=== PATIENT | female | born 1965 | race Caucasian/White ===

== ENCOUNTER 2025-01-13 23:40 | Emergency (ER) | payer BC, SELFPAY ==
[2025-01-13 23:50] VITALS: BP 167/104
[2025-01-13 23:52] VITALS: BP 198/121; PULSE 96; RESP 18; TEMP 36.2; O2SAT 100; BMI 23.5
[2025-01-13 23:55] VITALS: O2SAT 98
[2025-01-14] VITALS (15 sets, daily range): BP systolic 133–158; BP diastolic 83–96; PULSE 79–87; RESP 7–38; O2SAT 96–99
--- NOTE | 2025-01-14 00:01 | CRLHL7_ITS ---
For Patients: As a result of the Cures Act, medical imaging exams and procedure reports are released immediately into your electronic medical record. You may view this report before your referring provider. If you have questions, please contact your health care provider. INDICATION: Ongoing chest pain for 6 months TECHNIQUE: Chest radiograph 2 views COMPARISON: None FINDINGS: Mediastinum: The mediastinum is normal in appearance. The heart silhouette is normal in size and morphology. Lung: Both lungs are unremarkable in appearance. No sign of pleural effusion seen. No pneumothorax is identified. Bone and Soft tissue: Unremarkable for age. Previous cholecystectomy noted with no significant intra- or extrahepatic biliary ductal dilatation seen. IMPRESSION: 1. No acute cardiopulmonary disease is seen. Dictated by: Holden Bailey MD @ 01/14/2025 00:30:09 (Electronically Signed)
--- NOTE | 2025-01-14 00:04 | ED.CHESTPAIN ---
HPI - Chest Pain General Chief Complaint: Chest Pain Stated Complaint: chest pain Time Seen by Provider: 01/13/25 23:54 Source: patient, RN notes reviewed and old records reviewed Mode of arrival: ambulatory Limitations: no limitations History of Present Illness HPI narrative: Patient is a very nice 59-year-old female who presents here for evaluation of chest pain over the left side of her chest, she has had this for the past 2 hours this coupled with her heart beating stronger than it normally does. She has had reminds me that she has had the chest pain on off for at least 4-6 months. She has talked to multiple providers about this, she is tentatively have a stress test scheduled with her primary care physician although she is not on about getting this appointment done. She describes the pain over left side of her chest with a little bit of radiation to her left shoulder, not associated with nausea, vomiting, the pain is sudden, and last seconds, although there is time she says it feels like can last for maybe a minute, not always associated infected almost never is associated with exercise or walking, and she is able to exercise without problems. No previous history of coronary disease but her sister when she was 53 did have coronary artery disease. She has a history of hypertension, ex-smoker in the remote past, no history of diabetes she does not think her cholesterol is elevated. And no use of any drugs. Does have a history of a mildly dilated aorta at 3.9 cm. Saw last saw cardiology in 2021. Also has a history of asthma, followed by the [facility]. She is allergic to aspirin. Unsure of the allergy. But as able to take ibuprofen complaint: chest pain Pertinent past history: asthma Onset (ago): hour(s) Timing of current episode: now resolved Prior episodes: Yes Onset: during rest Pain location: left chest Pain radiation: left shoulder Severity: moderate Quality: tightness Relieving factors: nothing Exacerbating factors: nothing Treatment prior to arrival: none Risk Factors Coronary artery disease risk factors: hypertension Thoracic aortic dissection risk factors: none Related Data On Oral Contraceptives: No Home Medications ?Medication ?Instructions ?Recorded ?Confirmed albuterol sulfate 90 mcg/actuation 2 inh inhalation Q4-6H PRN 01/14/25 01/14/25 breath activated powder inhaler amlodipine 10 mg tablet 10 mg PO DAILY 01/14/25 01/14/25 estradiol 1 mg tablet (Estrace) 1 mg PO DAILY 01/14/25 01/14/25 loratadine 10 mg chewable tablet 10 mg PO DAILY 01/14/25 01/14/25 losartan 25 mg tablet (Cozaar) 25 mg PO DAILY 01/14/25 01/14/25 montelukast 10 mg tablet 10 mg PO DAILY 01/14/25 01/14/25 sertraline 25 mg tablet 25 mg PO DAILY 01/14/25 01/14/25 Allergies Allergy/AdvReac Type Severity Reaction Status Date / Time aspirin Allergy Mild Hives Verified 01/13/25 23:59 Penicillins Allergy Mild Hives Verified 01/13/25 23:59 Review of Systems Status of ROS Reports: 10 or more systems reviewed and unremarkable except as noted in History and below [facility] Medical History Palpitations ?R00.2 - Palpitations (ICD-10) Syncope ?R55 - Syncope and collapse (ICD-10) Hypertension ?I10 - Essential (primary) hypertension (ICD-10) Mitral valve prolapse ?I34.1 - Nonrheumatic mitral (valve) prolapse (ICD-10) Asthma ?J45.909 - Unspecified asthma, uncomplicated (ICD-10) Surgical History Hx of cholecystectomy ?Z90.49 - Acquired absence of other specified parts of digestive tract (ICD-10) Social History service: No Exam Narrative Exam Narrative: Patient is peaking normally, no problem with slurring words, oriented x3. Head eyes ears nose and throat exam show equal pupils, no scleral icterus, extraocular muscles are normal, no facial droop, speech is normal, trachea normal and midline. Thyroid normal midline palpable not enlarged. Chest shows symmetrical rise bilaterally, normal auscultation with no wheezes, no increased work of breathing, no overt bruising or lesions seen, no tenderness is noted on auscultation. Heart sounds normal with no S3-S4 no murmurs clicks or gallops. Abdomen shows no obvious masses or hepatosplenomegaly, no organomegaly, bowel sounds are normal in all quadrants. No tenderness is noted also in all quadrants. Upper and lower extremities show normal power, normal range of motion, pulses are normal, sensations normal, fine motor movements are normal, pelvis is stable to rocking. Cervical spine shows normal range of motion, and palpably not tender. Thoracic spine shows normal range of motion, and palpably not tender, lumbar spine shows no tenderness to palpation percussion and is otherwise normal range of motion. Skin shows no rashes, petechiae or eccymosis. Const Vital Signs, click to edit/add: Vital Signs - 24 hr 01/13/25 23:50 01/13/25 23:52 01/14/25 00:14 Temperature 97.1 F L Pulse Rate 83 Pulse Rate [Right Pulse Oximeter] 96 Respiratory Rate 18 14 Blood Pressure Blood Pressure [Left Upper Arm] 167/104 H 198/121 H Pulse Oximetry 100 97 Oxygen Delivery Method Room Air 01/14/25 00:15 01/14/25 00:16 01/14/25 00:30 Temperature Pulse Rate 86 87 87 Pulse Rate [Right Pulse Oximeter] Respiratory Rate 16 16 17 Blood Pressure 158/96 H Blood Pressure [Left Upper Arm] Pulse Oximetry 98 98 97 Oxygen Delivery Method 01/14/25 00:31 01/14/25 00:45 01/14/25 00:46 Temperature Pulse Rate 85 86 83 Pulse Rate [Right Pulse Oximeter] Respiratory Rate 17 12 7 L Blood Pressure 141/87 H 140/93 H Blood Pressure [Left Upper Arm] Pulse Oximetry 97 98 97 Oxygen Delivery Method 01/14/25 01:00 Temperature Pulse Rate 83 Pulse Rate [Right Pulse Oximeter] Respiratory Rate 19 Blood Pressure Blood Pressure [Left Upper Arm] Pulse Oximetry 99 Oxygen Delivery Method Documenting provider has reviewed patient's vital signs: yes Course Course ED Course: I reviewed the lab tests with her, her troponin D-dimer in the remainder lab tests were all normal, we will repeat her point of care troponin, this is negative then I think we can safely discharge her home, her heart score puts her in a low risk category, I would recommend that she do a follow-up stress echo, for her palpitations I will hold off any medication as the interaction may make her worsening asthma. We went over signs and symptoms of worsening when she should re-presented she was comfortable with this. Vital Signs Vital signs: Initial Vital Signs Blood Pressure 167/104 H 01/13/25 23:50 Blood Pressure Mean 125 H 01/13/25 23:50 Blood Pressure Position Semi-Fowlers 01/13/25 23:50 Vital Signs Blood Pressure 167/104 H 01/13/25 23:50 Temperature 97.1 F L 01/13/25 23:52 Pulse Rate 83 01/14/25 01:00 Respiratory Rate 19 01/14/25 01:00 Blood Pressure 140/93 H 01/14/25 00:46 Pulse Oximetry 99 01/14/25 01:00 Oxygen Delivery Method Room Air 01/13/25 23:52 Medications Administered Medications: Discontinued Medications Generic Name Dose Route Start Last Admin Trade Name Freq PRN Reason Stop Dose Admin Sodium Chloride 1,000 mls @ 1,000 mls/hr 01/14/25 00:15 01/14/25 00:35 0.9 % Sodium Chloride 1000 Ml IV 01/14/25 01:14 1,000 mls/hr .Q1H CLINT Administration MDM - Chest Pain MDM Narrative Medical decision making narrative: During the evaluation of this patient I considered multiple differential diagnosis is. The life-threatening differential diagnosis include coronary disease/CT, pulmonary embolism, pneumothorax, pneumonia, and aortic dissection. Other differential diagnosis included but were not limited to pericarditis, myocarditis, chest wall pain, GERD, esophageal rupture, rib fracture contusion, pleurisy, as well as other etiologies. Differential Diagnosis Differential diagnosis: Likely fracture of rib, pneumothorax, stable angina, unstable angina pectoris, atypical chest pain, st elevation myocardial infarction, costochondritis, chest pain and biliary colic Medical Records Data Attestation: I reviewed the patient's medical records. Lab Data Attestation: I reviewed the patient's lab results. Labs: Lab Results 01/14/25 Range/Units 00:00 WBC 9.59 (4.50-11.00) K/uL RBC 4.31 (4.00-5.20) m/uL Hgb 12.8 (12.0-16.0) gm/dL Hct 38.1 (33.0-51.0) % MCV 88 (80-100) fL MCH 30 (26-34) pg MCHC 34 (32-36) gm/dL RDW Coeff of Meri 12.9 (11.5-15.5) % Plt Count 250 (140-440) K/uL Neut % (Auto) 53.7 (42.0-72.0) % Lymph % (Auto) 32.7 (20-44) % Grand % (Auto) 8.1 (0.0-11.0) % Eos % (Auto) 4.4 (0.0-7.0) % Baso % (Auto) 0.8 (0.0-3.0) % Neut # (Auto) 5.14 (1.7-7.0) K/uL Lymph # (Auto) 3.14 H (0.90-2.90) K/uL Grand # (Auto) 0.80 (0.00-0.90) K/UL Eos # (Auto) 0.42 (0.00-0.50) K/uL Baso # (Auto) 0.08 (0.00-0.30) K/uL Abs Immat Gran (auto) 0.03 (0.00-0.30) K/uL Imm/Tot Granulo (auto) 0.3 % D-Dimer Quant (PE/DVT) 0.10 (0.00-0.50) ug/ml Sodium 143 (135-149) mmol/L Potassium 3.8 (3.6-5.1) mmol/L Chloride 109 (96-114) mmol/L Carbon Dioxide 24 (20-32) mmol/L Anion Gap 10 (7-15) mEq/L BUN 15 (7-30) mg/dL Creatinine 0.7 (0.5-1.5) mg/dL Estimated Creat Clear 71.58 Estimated GFR 100 ml/min Glucose 107 (60-115) mg/dL Calcium 8.9 (8.4-10.6) mg/dL Magnesium 2.2 (1.5-2.6) mg/dL Total Bilirubin 0.6 (0.1-1.5) mg/dL Direct Bilirubin 0.2 (0.0-0.5) mg/dL AST 21 (12-35) U/L ALT 15 (4-35) U/L Alkaline Phosphatase 61 (40-150) U/L NT-Pro-B Natriuret Pep 27 pg/mL Total Protein 6.7 (6.0-8.3) g/dL Albumin 4.2 (3.3-5.0) g/dL TSH 3.610 (0.270-4.20) uIU/mL POC Troponin I 0.00 L (0.01-0.04) ng/ml Imaging Data Chest x-ray: Attestation: I have reviewed the pertinent imaging results. My impression: No acute findings Radiologist's impression: [address] [address] Diagnostic Imaging Report Patient: Leah Parkinson MR#: [id number] : 1965 Acct:[id number] Loc: ED Service Date: 01/14/[address]: Ordering Physician: Franki Hernandez M.D. Date of Service: 01/14/25 Procedure(s): XR chest 2V Accession Number(s): [id number] cc: Provider,Not a Local; Franki Hernandez M.D.~ For Patients: As a result of the Cures Act, medical imaging exams and procedure reports are released immediately into your electronic medical record. You may view this report before your referring provider. If you have questions, please contact your health care provider. INDICATION: Ongoing chest pain for 6 months TECHNIQUE: Chest radiograph 2 views COMPARISON: None FINDINGS: Mediastinum: The mediastinum is normal in appearance. The heart silhouette is normal in size and morphology. Lung: Both lungs are unremarkable in appearance. No sign of pleural effusion seen. No pneumothorax is identified. Bone and Soft tissue: Unremarkable for age. Previous cholecystectomy noted with no significant intra- or extrahepatic biliary ductal dilatation seen. IMPRESSION: 1. No acute cardiopulmonary disease is seen. Dictated by: Holden Bailey MD @ 01/14/2025 00:30:09 (Electronically Signed) ECG Data Attestation: I personally reviewed and interpreted this ECG as follows: ECG interpretation date: 01/14/25 Prior ECG tracings: not available for review Interpretation: EKG shows normal sinus rhythm, with incomplete right bundle-branch block, QRS 98 milliseconds QT is 380, QTC is 469. Inferiorly there is maybe some slight ST wave flattening noted in leads 3. Poor R-wave progression is noted across the precordial leads. Abnormal EKG with nonspecific findings. Discharge Plan Discharge Clinical Impression: Chest pain, Heart palpitations Patient Disposition: Home, Self-Care Condition: Stable Instructions: Chest Pain (DC), Heart Palpitations (DC) Additional Instructions: Home, rest, all your testing here was negative, there is no indication of anything significantly wrong. I do recommend that you follow-up with primary care. I have given the name of an excellent primary care physician, where he can consider seeing. She is rate ex door in the clinic, return here if increasing chest pain shortness of breath exertional discomfort or other issues. But again reassuring findings were found today on examination and testing Activity Level: Light activity Discharge Diet: Regular Prescriptions: No Action montelukast 10 mg tablet 10 mg PO DAILY losartan [Cozaar] 25 mg tablet 25 mg PO DAILY sertraline 25 mg tablet 25 mg PO DAILY amlodipine 10 mg tablet 10 mg PO DAILY albuterol sulfate 90 mcg/actuation aerosol powdr breath activated 2 inh inhalation Q4-6H PRN loratadine 10 mg tablet,chewable 10 mg PO DAILY estradiol [Estrace] 1 mg tablet 1 mg PO DAILY Rx Instructions: off 1 week; repeat cycle Follow Up/Referrals: Luz Elena Cochran MD [Staff Physician] - Provider,Not a Local [Primary Care Provider] - Stand Alone Forms: [employer] Info Instructions
[2025-01-14 00:13] LABS: Basophils Absolute Auto 0.08 K/uL (0.00-0.30); Basophils Percent Auto 0.8 % (0.0-3.0); Eosinophils Absolute Auto 0.42 K/uL (0.00-0.50); Eosinophils Percent Auto 4.4 % (0.0-7.0); Hematocrit 38.1 % (33.0-51.0); Hemoglobin* 12.8 gm/dL (12.0-16.0); Immature Granulocytes Abs Auto 0.03 K/uL (0.00-0.30); Immature Granulocytes Pct Auto 0.3 %; Lymphocytes Absolute Auto 3.14 K/uL (0.90-2.90); Lymphocytes Percent Auto 32.7 % (20-44); Mean Corpuscular HGB Conc 34 gm/dL (32-36); Mean Corpuscular Hemoglobin 30 pg (26-34); Mean Corpuscular Volume 88 fL (80-100); Monocytes Percent Auto 8.1 % (0.0-11.0); Neutrophils Absolute Auto 5.14 K/uL (1.7-7.0); Neutrophils Percent Auto 53.7 % (42.0-72.0); Platelet Count* 250 K/uL (140-440); RDW Coefficient of Variation % 12.9 % (11.5-15.5); Red Blood Count 4.31 m/uL (4.00-5.20); White Blood Count* 9.59 K/uL (4.50-11.00)
[2025-01-14 00:14] LABS: Slide Review Reflex No
--- OUTSIDE RECORDS SUMMARY | 2025-01-14 00:20 | XMS_ITS | Clinical Summary ---
Author Organization [facility] Address [address] [place] [id number] Care Team Providers Care Controlled Area Checker Name Role Phone Iva Wilcox CARE ASST Primary Care Provider [phone] Allergies Active Allergy Reactions Criticality Noted Date Comments Aspirin Hives 08/01/2007 Penicillins Hives 08/01/2007 Medications albuterol HFA 90 mcg/actuation inhalerIndicatio ns:History of asthma Inhale 2 Puffs by mouth 4 times daily if needed. 1 Inhaler 8 Active amLODIPine (NORVASC) 10 mg tablet Take 1 Tablet (10 mg) by mouth once daily. 2 Active montelukast (SINGULAIR) 10 mg tablet Take 1 Tablet (10 mg) by mouth once daily. 0 2 Active loratadine (Claritin) 10 mg chew Chew 10 mg by mouth once daily. 0 2 Active sertraline (Zoloft) 25 mg tablet Take 1 Tablet (25 mg) by mouth once daily. 0 2 Active estradioL (ESTRACE) 1 mg tablet Take 1 Tablet (1 mg) by mouth once daily. 0 2 Active polyethylene glycol-electroly te (GOLYTELY) 236-22.74-6.74 -5.86 gram suspensionIndica tions:Encounter for screening colonoscopy Drink 2 liters (half the bottle) the day before colonoscopy and 2 liters (remaining prep) 6 hours prior to colonoscopy appointment. 4000 mL 4 Active losartan (COZAAR) 25 mg tablet Take 25 mg by mouth once daily. Active Active Problems Problem Noted Date Diagnosed Date Colon polyp 06/21/2024 Overview (06/21/2024): Colonoscopy 06/2024 TA, repeat in 5 years Family history of colon cancer 06/21/2024 Overview (06/21/2024): Colonoscopy 06/2024 TA, repeat in 5 years Syncope 02/09/2022 HTN (hypertension) 02/09/2022 Palpitations 02/09/2022 Asthma 12/15/2010 Family History Medical History Relation Name Comments Hypertension Brother Hypertension Father Arrhythmia Mother Hypertension Mother Heart attack Sister Hypertension Sister Relation Name Status Comments Brother Father Mother Sister Social History Tobacco Use Types Packs/Day Years Used Date Smoking Tobacco: Never Alcohol Use Standard Drinks/Week Comments Yes 0 (1 standard drink = 0.6 oz pur e alcohol) 1-2 monthly Social Connections Answer Date Recorded Do you often feel lonely or isolated from those around you? 4 06/14/2024 Financial Resource Strain Answer Date R ecorded Difficulty of Paying Living Expenses 3 06/15/2024 Difficulty of Paying Living Expenses Not on file 06/15/2024 Food Insecurity Answer Date Recorded Do you worry your food will run out before you are able to buy more? 1 06/14/2024 Transportation Needs Answer Date Record ed Does lack of transportation keep you from medica l appointments? 1 06/14/2024 Does lack of transportation keep you from work, meetings or getting things that you need? 1 06/14/2024 Housing Stability Answer Date Recorded What is your housing situation today? 1 06/14/2024 Utilities Answer Date Recorded Do you have trouble paying f or utilities (for example, heat, electricity, water, phone)? 1 06/14/2024 Comments No Sex and Gender Information Value Date Recorded Sex Assigned at Not on file Legal Sex Female 5:47 AM ORTHOTIST PROSTHETIST Gender Identity Not on file Sexual Orientation Not on file Obstetrics History Last Filed Vital Signs Vital Sign Reading Time Taken Comments Blood Pressure 135/88 06/15/2024 9:43 AM CDT Pulse 95 06/15/2024 9:43 AM CDT Temperature 37.2 C (98.9 F) 09/18/2020 10:42 PM ORTHOTIST PROSTHETIST Respiratory Rate 18 09/18/2020 10:42 PM ORTHOTIST PROSTHETIST Oxygen Saturation 100% 06/15/2024 9:43 AM CDT Inhaled Oxygen Concentration - - Weight 65.4 kg (144 lb 3.2 oz) 06/15/2024 9:43 A M CDT Height 161.6 cm (5' 3.62) 06/15/2024 9:43 AM CD T Body Mass Index 25.05 06/15/2024 9:43 AM CDT Plan of Treatment Health Maintenance Due Date Last Done Comments Tdap 01/17/1976 Depression screening for age 12+ 1977 HIV for age 15-65 01/17/1980 Hepatitis C screening for age 18-79 1983 Tetanus booster 1985 Pap test for age 21-65 1986 Lipids for age 45-75 2010 Mammogram for age 45-75 2010 Pneumococcal series for age 50+ (1 of 1 - PCV) 2015 Zoster (shingles) series for age 50+ (1 of 2) 2015 COVID-19 vaccine series ( - season) 2024 Influenza Vaccine (Season Ended) 2025 BMI (ht and wt on same day) for age 18+ 06/15/2025 1 , 02/09/2022 Colonoscopy through age 75 06/18/2029 06/18/2024 Procedures Procedure Name Priority Date/Time Associated Diagnosis Comments SCAN-COLONOSCOPY 06/18/2024 12:0 0 AM CDT from Last 3 Months or Most Recently Relevant to Health Maintenance Results * SCAN-COLONOSCOPY (06/18/2024 12:00 AM CDT) us Scanner OTHER Final Result from Last 3 Months or Most Recently Relevant to Health Maintenance Insurance [facility] Care Teams Controlled Area Checker Relationship Specialty Start Date End Date Iva Wilcox NP YOGESH BURTON [phone] PCP - General Nurse Practitioner 01/27/22
--- OUTSIDE RECORDS SUMMARY | 2025-01-14 00:21 | XMS_ITS | Clinical Summary ---
Author Organization [facility] Address [address] [place] [address] Care Team Providers Care Cosmetic Sales Assistant Name Role Phone Unavailable Primary Care Provider Unavailabl e Source Comments PLEASE NOTE, if this patient is a minor, it may be UNLAWFUL to discuss sensitive information that is contained in these records (such as FAMILY PLANNING, MENTAL HEALTH or SUBSTANCE ABUSE) with the minor patient's parent or other person without the patient's specific authorization.[facility] Allergies Active Allergy Reactions Criticality Noted Date Comments Aspirin, Buffered Hives 05/13/2017 Penicillins Hives 05/13/2017 Medications hydroCHLOROthiaz laurent (HYDRODIURIL) 25 mg tablet Take 25 mg by mouth once daily Active methylPREDNIsolo ne (MEDROL DOSPACK) 4 mg tablet packIndications: Severe persistent asthma with acute exacerbation (HCC-CMS) Follow package directions. 1 Packet 7 Active montelukast (SINGULAIR) 5 mg chewable tabletIndication s:Severe persistent asthma with acute exacerbation (HCC-CMS) Place 2 Tabs into mouth, chew and swallow nightly at bedtime 30 Tab 5 7 Active mometasone-formo terol (DULERA) 200-5 mcg/actuation inhalerIndicatio ns:Severe persistent asthma with acute exacerbation (HCC-CMS) Inhale 2 Puffs into the lungs 2 (two) times daily Do not exceed 2 puffs twice daily. 1 Inhaler 7 Active lisinopril (PRINIVIL,ZESTRI L) 5 mg tabletIndication s:Hypertension, essential Take 1 Tab by mouth once daily 30 Tab 1 8 Active fluticasone (FLONASE ALLERGY RELIEF) 50 mcg/actuation nasal sprayIndications :Seasonal allergic rhinitis due to other allergic trigger Place 2 Sprays in both nostrils once daily 16 g 8 Active cetirizine (ZYRTEC) 10 mg tabletIndication s:Seasonal allergic rhinitis due to other allergic trigger Take 1 Tab by mouth once daily 100 Tab 3 8 Active butalbital-aceta minophen-caff (FIORICET, ESGIC) 50-325-40 mg per tabletIndication s:Migraine without status migrainosus, not intractable, unspecified migraine type Take 1 Tab by mouth every 6 (six) hours as needed for other reason (Migraine) 10 Tab 8 Active albuterol sulfate (ACCUNEB) 1.25 mg/3 mL nebulizer solutionIndicati ons:Moderate persistent asthma, unspecified whether complicated (HHS-HCC) Take 3 mL by nebulization every 4 (four) hours as needed for wheezing or shortness of breath 25 Vial 8 Active albuterol sulfate (VENTOLIN HFA) 90 mcg/actuation inhalerIndicatio ns:Moderate persistent asthma, unspecified whether complicated (HHS-HCC) Inhale 2 Puffs into the lungs every 4 (four) hours as needed for shortness of breath or wheezing 1 Inhaler 8 Active fluticasone-salm eterol (ADVAIR HFA) 115-21 mcg/actuation inhalerIndicatio ns:Moderate persistent asthma, unspecified whether complicated (HHS-HCC) Inhale 2 Puffs into the lungs 2 (two) times daily 1 Inhaler 8 Active Active Problems No known active problems Immunizations Immunization Administration Dates Next Due PNEUMOCOCCAL POLYSACCHARIDE PPV23 (Pneumovax 23) 06/17/2009 TDAP 12/15/2010 Family History Medical History Relation Name Comments Alcohol/Drug Abuse Father Cancer Father Hypertension Father Asthma Mother Cancer Mother Hypertension Mother Relation Name Status Comments Father Mother Alive Social History Tobacco Use Types Packs/Day Years Used Date Smoking Tobacco: Never Smokeless Tobacco: Never Alcohol Use Standard Drinks/Week Comments No 0 (1 standard drink = 0.6 oz pur e alcohol) Social Connections Answer Date Recorded Social Connections and Isolation 0 05/06/2019 Financial Resource Strain Answer Date R ecorded Financial Resource Strain 0 2018 Stress Answer Date Recorded Stress 0 05/06/2019 Physical Activity Answer Date Recorded Physical Activity 0 05/06/2019 Food Insecurity Answer Date Recorded Food 0 05/06/2019 Transportation Needs Answer Date Record ed Transportation 0 05/06/2019 Housing Stability Answer Date Recorded Housing 0 05/06/2019 Safety and Environment Answer Date Dayday rded Safety 0 05/06/2019 Utilities Answer Date Recorded Utilities 0 05/06/2019 Employment Answer Date Recorded Employment 0 05/06/2019 Comments No Sex and Gender Information Value Date Recorded Sex Assigned at Not on file Legal Sex Female 2:23 PM PDT Gender Identity Not on file Sexual Orientation Not on file Last Filed Vital Signs Vital Sign Reading Time Taken Comments Blood Pressure 150/100 05/19/2018 1:42 PM CDT Pulse 80 01/26/2018 10:00 AM CDT Temperature 36.4 C (97.6 F) 05/13/2017 10:16 AM CDT Respiratory Rate 18 01/26/2018 10:00 AM CDT Oxygen Saturation 95% 05/13/2017 10:16 AM CDT Inhaled Oxygen Concentration - - Weight 60.8 kg (134 lb) 01/26/2018 10:00 AM CDT Height 160 cm (5' 3) 01/26/2018 10:00 AM CDT Body Mass Index 23.74 01/26/2018 10:00 AM CDT Plan of Treatment Not on file
--- OUTSIDE RECORDS SUMMARY | 2025-01-14 00:21 | XMS_ITS | Clinical Summary ---
[facility] Address [address] [place] [address] Care Team Providers Care Carbon Accountant Name Role Phone Found, No Pcp MD Primary Care Provider Unavailab le Source Comments You are receiving this document as you are listed as the primary care provider,follow-up provider, or the patient has been referred to you for consultation.This is in compliance with the Medicare and[facility] EHR Incentive Program,which states Providers who transition their patient to another setting of careor provider of care or refers their patient to another provider of care shouldprovide summary care record for each transition of care or referral. [employer] Family History Medical History Relation Name Comments Cancer, Breast Negative Family History Cancer, Ovary Negative Family History Social History Tobacco Use Types Packs/Day Years Used Date Smoking Tobacco: Never Assessed Comments No Sex and Gender Information Value Date Recorded Sex Assigned at Not on file Legal Sex Female 11:36 AM CDT Gender Identity Not on file Sexual Orientation Not on file Plan of Treatment Health Maintenance Due Date Last Done Comments Cervical Cancer Screening Due 1965 Colon Cancer Screening Plan Due 1965 Hep C Screening (Preventive Services) 1965 HIV Screening (Preventive Services) 1981 Adult Preventive Visit 1983 HepB Vaccine (1) 01/17/1984 Cholesterol 2010 Pneumococcal Vaccine 50+ Yrs (2 of 2 - PCV) 2015 06/17/2009 Zoster/Shingles Vaccine (1 o f 2) 2015 DTaP/Tdap/Td Vaccine (2 - Tdap) 12/15/2020 12/15/2010 Mammogram 07/24/2021 07/24/2020, 06/18/2013 COVID-19 Vaccine (1 - 2023-2 5 season) 2024 Influenza Vaccine (Season Ended) 2025 09/14/2012, 06/15/2010, 06/05/2009 HepA Vaccine Aged Out No longer eligi ble based on patient's age to complete this topic Hib Vaccine Aged Out No longer eligi ble based on patient's age to complete this topic IPV (Polio) Vaccine Aged Out No longe r eligible based on patient's age to complete this topic MCV4 Vaccine Aged Out No longer eligi ble based on patient's age to complete this topic Meningococcal B Vaccine Aged Out No l onger eligible based on patient's age to complete this topic Procedures Procedure Name Priority Date/Time Associated Diagnosis Comments MM MAMMOGRAM SCREENING BILAT W 3D JUDAH W CAD Routine 07/24/2020 1:41 PM PHYSICIAN COMPENSATION ANALYST Visit for screening mammogram from Last 3 Months or Most Recently Relevant to Health Maintenance Results * MM Mammogram Screening Bilat W 3D Judah W CAD (07/24/2020 1:41 PM PHYSICIAN COMPENSATION ANALYST) Anatomical Region Laterality Modality Breast Bilateral Mammography Impressions 08/08/2020 3:39 PM PHYSICIAN COMPENSATION ANALYST : ACR BI-RADS Category 1: Negative RECOMMENDATION: Follow Up Imaging in 12 months - Bilateral The results and recommendations of this examination will be communicated to the patient. Narrative 08/08/2020 3:39 PM PHYSICIAN COMPENSATION ANALYST MM MAMMOGRAM SCREENING BILAT W 3D JUDAH W CAD performed on 07/24/20 Compared to: 06/18/2013 Foreign Image(S) Mammogram, 03/17/2012 Foreign Image(S) Mammogram, and 04/01/2009 Foreign Image(S) Mammogram FINDINGS: Bilateral screening mammogram was performed with the assistance of Computer-Aided Detection and breast tomosynthesis. The breasts are heterogeneously dense, which may obscure small masses. There is no radiographic evidence of malignancy. us Iva Wilcox APRN, DECORATING CONSULTANT RAD GURPREET Final Resu lt from Last 3 Months or Most Recently Relevant to Health Maintenance Insurance [employer] Care Teams Carbon Accountant Relationship Specialty Start Date End Date Found, No Pcp, [address] [place] [address] PCP - General 03/29/19
--- OUTSIDE RECORDS SUMMARY | 2025-01-14 00:21 | XMS_ITS | Clinical Summary ---
Author Organization [facility] Address [address] [address] Phone Care Team Providers Care Gas Operation Manager Name Role Phone Shira Godoy [facility] Primary Care Provider Allergies Active Allergy Reactions Criticality Noted Date Comments Aspirin Hives High 12/10/2010 Penicillins Hives High 12/10/2010 Medications albuterol (Proventil, Ventolin) (2.5 MG/3ML) 0.083% nebulizer solution albuterol sulfate 2.5 mg /3 mL (0.083 %) inhalation solution for nebulization inhale 3 milliliters (2.5 mg) by nebulization route every 6 hours as needed 1 0 N 25-Nov-2014 Active Active albuterol HFA (Ventolin HFA) 108 (90 Base) MCG/ACT inhalation aerosol Inhale 2 Puffs into the lungs every six hours. Active ESTRADIOL OR Take 1 mg by mouth one time a day. Active montelukast (Singulair) 10 MG tablet Take 10 mg by mouth every evening. Active AMLODIPINE BESYLATE OR Take 10 mg by mouth one time a day. Active triamcinolone acetonide (Kenalog) 0.1 % ointmentIndicat ions:Rash Apply topically two times a day. Apply a thin film sparingly. As it gets better, apply once daily. As you get it under control, find a good (minimal) maintenance dose ie: 1-2 times per week 80 g 1 3 Active tacrolimus (Protopic) 0.1 % ointmentIndicat ions:Rash Apply to the affected areas on the upper thighs daily. 60 g 3 3 Active Active Problems Problem Noted Date Diagnosed Date Onycholysis 03/27/2024 Assessment & Plan (03/27/2024 1:26 PM CDT): 03/27/24 PLAN: - Nail clipping done today to rule out fungal infection vs. traumatic EXAM/DISCUSSION: She stated her nail fell off over the winter and denies any trauma done. Her nail grew back and developed a black, tender area under her right Great Toenail. Today we did a nail clipping to rule out fungal infection. We discussed possible causes like trauma, or some type of fungal presentation that got under her nail from previous shoes she has warn. Seborrheic keratoses, inflamed 11/19/2022 Assessment & Plan (11/19/2022 8:12 AM DEPARTMENT HEAD [employer]IOR [employer]): 11/19/22 PLAN: - one inflamed seborrheic keratoses were treated with cryotherapy (Liquid Nitrogen) Locations: left mid back EXAM/DISCUSSION: Inflamed seborrheic keratoses are benign lesions, but they often become itchy, change color, or become crusty with bloody scabs at the surface. Today the patient's lesions included these features and were treated to reduce or clear up the symptoms. Wound care was discussed in detail. Estimate of charges for the treatment of benign lesions was discussed and the patient signed our Patient Acknowledgment of Non-Covered Services with estimated kohli. See scanned form in chart. Patient understands that if this procedure is not covered by insurance they are responsible for charges. Rash 11/19/2022 Assessment & Plan (01/17/2023 10:23 AM CDT): 01/17/23 - Greatly improved! Inverse psoriasis vs contact dermatitis PLAN: Discontinue Triamcinolone 0.1% ointment BID as needed for flares (use as a fire extinguisher - patient has enough cream at home/ no refills needed. Start: Protopic 0.1% ointment - apply to the AA daily. - safe to use global account director. RTC as needed. EXAM/DISCUSSION: Erythematous atrophic plaques in b/l inquinal folds - clear on exam! Minimal hypopigmentation noted. HISTORY: Present since high school after using [employer]. Inverse psoriasis vs irritant dermatitis. Likely not Lichen Sclerosis. We discussed that if she discontinues the triamcinolone and it does NOT recur after discontinuing narrow or chemical usage in the bikini line then it is likely an irritant dermatitis to the chemical. If it recurs when she discontinues the triamcinolone without new exposures it may be inverse psoriasis. If patient finds it necessary to continue on triamcinolone and the tacrolimus is not working, I would recommend scheduling for reevaluation and potential biopsy. Assessment & Plan (11/19/2022 8:18 AM DEPARTMENT HEAD [employer]IOR [employer]): 11/19/22 PLAN: Start: Triamcinolone 0.1% ointment, apply twice a day. As it gets better apply once daily. As you get it under control, find a good (minimal) maintenance dose ie: 1-2 times per week. RTC 6-8 weeks for recheck EXAM/DISCUSSION: Erythematous atrophic plaques in b/l inquinal folds. Posterior cleft is clear. > Photo taken for reference. Present since high school after using [employer]. Inverse psoriasis vs irritant dermatitis. Likely not Lichen Sclerosis. HTN (hypertension) 12/15/2010 03/11/2023 Asthma 12/15/2010 03/11/2023 Immunizations Name Administration Dates Next Due Tdap (7 years and older) 03/14/2022 Surgical History Surgery Date Site/Laterality Comments TONSILLECTOMY CHOLECYSTECTOMY Medical History Medical History Date Comments Heart murmur Family History Medical History Relation Comments Addiction Father RV [place] - Pr oblem: Drug/Alcohol Problems Colon Cancer Father [place] Hypertension Father [place] - Pr oblem: Hypertension, Benign Essential Basal cell carcinoma Mother Cancer Mother [place] - Pr oblem: Cancer, other, Comment: SKIN CA Hypertension Mother [place] - Pr oblem: Hypertension, Benign Essential Lipid Elevation Mother [place] - Pr oblem: High Cholesterol Ovarian Cancer Mother [place] Basal cell carcinoma Sister Cardiovascular Disease Sister [place] - Problem: Heart disease Melanoma Sister Relation Status Comments Father Mother Sister Social History Tobacco Use Types Packs/Day Years Used Date Smoking Tobacco: Never Smokeless Tobacco: Never Alcohol Use Standard Drinks/Week Comments Yes 0 (1 standard drink = 0.6 oz pur e alcohol) [facility] Custom IPV Answer Date Recorded Do you feel UNSAFE in any of your personal relationships with your family members or any other acquaintances? No 2022 Comments No Sex and Gender Information Value Date Recorded Sex Assigned at Female 03/14/2022 9:56 PM CDT Legal Sex Female 12:11 PM CDT Gender Identity Female 03/14/2022 9:56 PM CDT Sexual Orientation Not on file Obstetrics History Last Filed Vital Signs Vital Sign Reading Time Taken Comments Blood Pressure 132/80 08/01/2023 1:25 PM DEPARTMENT [employer] Pulse 77 08/01/2023 1:25 PM DEPARTMENT [employer] Temperature 36.5 C (97.7 F) 08/01/2023 1:25 PM DEPARTMENT [employer] Respiratory Rate 24 03/09/2023 11:12 PM CDT Oxygen Saturation 99% 08/01/2023 1:25 PM DEPARTMENT [employer] Inhaled Oxygen Concentration - - Weight 59.9 kg (132 lb) 08/01/2023 1:25 PM DEPARTMENT [employer] Height 161.3 cm (5' 3.5) 11/25/2014 3:25 PM CDT Body Mass Index 23.02 11/25/2014 3:25 PM CDT Plan of Treatment Health Maintenance Due Date Last Done Comments CT Colonography 1965 Cervical Cancer Screening 1965 Cologuard 1965 Colonoscopy 1965 Colorectal Cancer Screening 1965 FIT/FOBT 1965 Last pap w/ HPV Testing 1965 Last pap w/o HPV Testing 1965 MAMMO,SCREEN 1965 Sigmoidoscopy 1965 Hepatitis B Vaccine (Standin g Order) (1 of 3 - 19+ 3-dose series) 01/17/1984 Pneumococcal Vaccine: 50+ yr s (Standing Order) (1 of 2 - PCV) 01/17/1984 Shingrix (Zoster recombinant ) vaccine (Standing Order) (1 of 2) 2015 TETANUS (Standing Order) 03/14/2032 03/14/2022 PERTUSSIS (Standing Order) Completed 03/14/2022 HPV Vaccine (Standing Order) Aged Out No longer eligible based on patient's age to complete this topic Insurance [facility] Commercial Address: [facility] [address] [place] [address] Care Teams Gas Operation Manager Relationship Specialty Start Date End Date Shira Godoy FNP [address] [place] [address] PCP - General Nurse Practitioner 02/13/24
[2025-01-14 00:31] LABS: Albumin* 4.2 g/dL (3.3-5.0); Chloride* 109 mmol/L (96-114); Potassium* 3.8 mmol/L (3.6-5.1); Sodium* 143 mmol/L (135-149)
[2025-01-14 00:33] LABS: Anion Gap 10 mEq/L (7-15); Blood Urea Nitrogen* 15 mg/dL (7-30); Carbon Dioxide* 24 mmol/L (20-32); Creatinine* 0.7 mg/dL (0.5-1.5); Est. Creatinine Clearance* 71.58; Estimated Glomerular Filt Rate 100 ml/min
[2025-01-14 00:34] LABS: Alanine Aminotransferase* 15 U/L (4-35); Alkaline Phosphatase* 61 U/L (40-150); Aspartate Amino Transferase* 21 U/L (12-35); Bilirubin Direct* 0.2 mg/dL (0.0-0.5); Bilirubin Total* 0.6 mg/dL (0.1-1.5); Calcium* 8.9 mg/dL (8.4-10.6); Glucose* 107 mg/dL (60-115); Magnesium* 2.2 mg/dL (1.5-2.6); Total Protein* 6.7 g/dL (6.0-8.3)
[2025-01-14] MEDS: 0.9 % SODIUM CHLORIDE 1000 ml 1,000 ML IV (00:35)
[2025-01-14 00:45] LABS: NT Pro B Type NatriureticPept* 27 pg/mL
== END 2025-01-14 01:59 | disposition home or self-care (01) ==
PROVIDERS: Emergency Provider Family Medicine
DX: R07.9 Chest pain, unspecified (principal); R00.2 Palpitations
CPT/HCPCS: 36415; 71046; 80048; 80076; 83735; 83880; 84443; 84484; 85025; 85379; 93005; 94761; 99284; J7030